=== PATIENT | male | born 1945 | race Caucasian/White ===

== ENCOUNTER 2018-10-19 10:21 | Inpatient (IN) | payer MEDICARE, BC ==
[~2018-10-19] VITALS: Ht 185.4 cm; Wt 96.0 kg
[2018-10-19] VITALS (7 sets, daily range): BP systolic 115–139; BP diastolic 54–78
[2018-10-19] MEDS ORDERED: diltiazem 5mg/ml 5ml inj. IV ONE ×2 (11:45→12:25)
[2018-10-19] MEDS ORDERED: diltiazem-NS 100mg/100ml 100 ML IV SCH (11:45)
--- NOTE | 2018-10-19 11:50 | NUR ---
triage and assessment on paper downtime chart
[2018-10-19] MEDS ORDERED: diltiazem-D5W 125mg/125ml 125 ML IV ONE (12:24)
[2018-10-19] MEDS: normal saline 1000ml 1,000 ML IV SCH (12:29)
[2018-10-19] MEDS ORDERED: potassium Cl 20 mEq SR tablet PO PRN (12:30)
[2018-10-19] MEDS ORDERED: ondansetron/PF 4mg/2ml inj IV PRN (12:30)
[2018-10-19] MEDS ORDERED: diphenhydrAMINE 25mg capsule PO PRN (12:30)
[2018-10-19] MEDS ORDERED: magnesium 4gm in 100ml NS 100 ML IV PRN (12:30)
[2018-10-19] MEDS ORDERED: mag hydrox/Alum hydrox/simeth 30ml oral suspension PO PRN (12:30)
[2018-10-19] MEDS ORDERED: magnesium hydroxide 30ml (MOM) UD suspension PO PRN (12:30)
[2018-10-19] MEDS ORDERED: magnesium Cl slow-release 64mg tablet PO PRN (12:30)
[2018-10-19] MEDS: K and/or MAG REPLACEMENT MC SCH (12:30)
[2018-10-19] MEDS ORDERED: potassium CL 10mEq/100ml bag 100 ML IV PRN ×2 (12:30)
[2018-10-19] MEDS ORDERED: magnesium 2GM in 50ml NS 50 ML IV PRN (12:30)
[2018-10-19] MEDS ORDERED: acetaminophen 325mg tablet PO PRN ×2 (12:30)
[2018-10-19] MEDS ORDERED: morphine 2 MG/ML inj. syringe IV PRN ×2 (12:30)
[2018-10-19] MEDS ORDERED: HYDROcodone/acetaminophen 10/325mg tab PO PRN (12:30)
[2018-10-19] MEDS ORDERED: HYDROcodone/acetaminophen 5mg/325mg tablet PO PRN (12:30)
[2018-10-19 13:04] LABS: ALANINE AMINOTRANSFERASE 25 U/L (12-78); ALBUMIN 3.5 G/DL (3.4-5.0); ALBUMIN/GLOBULIN RATIO 0.9 (1.1-1.5); ALKALINE PHOSPHATASE 61 IU/L (46-116); ANION GAP 14 (8-16); ASPARTATE AMINO TRANSFERASE 20 U/L (10-37); BILIRUBIN,TOTAL 0.8 MG/DL (0.1-1.0); BLOOD UREA NITROGEN 21 MG/DL (7-18); BUN/CREATININE RATIO 20.2 (5.4-32.0); CALCIUM 8.7 MG/DL (8.5-10.1); CHLORIDE 103 MMOL/L (99-107); CREATININE 1.04 MG/DL (0.60-1.10); GLUCOSE 106 MG/DL (70-104); POTASSIUM 3.9 MMOL/L (3.5-5.1); SODIUM 139 MMOL/L (135-145); TOTAL CARBON DIOXIDE 22.4 MMOL/L (24-32); TOTAL PROTEIN 7.6 G/DL (6.4-8.2); TROPONIN I < 0.04 NG/ML (0.0-0.05); eGFR 70 ML/MIN
[2018-10-19] MEDS ORDERED: ROSU10TA28 PO (13:24)
[2018-10-19] MEDS ORDERED: ASPI-611 PO (13:25)
[2018-10-19] MEDS ORDERED: ASCO500C15 PO (13:26)
[2018-10-19] MEDS ORDERED: GLUC100017 PO (13:26)
[2018-10-19 13:30] LABS: BASOPHILS % (AUTO) 0.5 % (0-1); EOSINOPHILS % (AUTO) 0.3 % (0-6); HEMATOCRIT 51.2 % (42.0-52.0); HEMOGLOBIN 17.4 g/dl (14.0-17.9); LYMPHOCYTES # (AUTO) 1.3 X10'3 (1.1-4.8); LYMPHOCYTES % (AUTO) 14.1 % (21-51); MEAN CORPUSCULAR HEMOGLOBIN 31.7 PG (27.0-31.0); MEAN CORPUSCULAR HGB CONC 33.9 g/dL (33.0-36.5); MEAN CORPUSCULAR VOLUME 93.3 FL (78-98); MEAN PLATELET VOLUME 8.9 FL (7.4-10.4); MONOCYTES # (AUTO) 1.4 X10'3 (0-0.9); MONOCYTES % (AUTO) 15.3 % (2-12); NEUTROPHILS # (AUTO) 6.5 X10'3 (1.8-7.7); NEUTROPHILS % (AUTO) 69.8 % (42-75); PLATELET COUNT 163 X10'3 (140-440); RED BLOOD COUNT 5.48 X10'6 (4.70-6.10); RED CELL DISTRIBUTION WIDTH 13.9 % (11.5-14.5); WHITE BLOOD COUNT 9.3 X10'3 (4.5-11.0)
--- NOTE | 2018-10-19 13:33 | NUR ---
cardizem drip increased to 10 mg/hr, heart rate was in 120's again
[2018-10-19 13:40] LABS: HEMOGLOBIN A1C 5.5 % (4.5-6.2)
--- NOTE | 2018-10-19 15:19 | NUR ---
Patient came up from ED and walked to bed. Patient vital signs obtained and mobile telemetry monitoring initiated. Cardizem running at 10mcg/kg/min. skin check and assessment to follow.
--- NOTE | 2018-10-19 15:19 | NUR ---
PAGER ID: [phone] MESSAGE: Alphonse [id number]. Patient came up on Cardizem gtt at 10mcg/kg/min can I put in that order? Fadumo [id number]
[2018-10-19] MEDS ORDERED: pneumococcal 23-VAL P-sac vacc 25 mcg/0.5ml vial IMVAC ONE (15:40)
[2018-10-19] MEDS: diltiazem-D5W 125mg/125ml 125 ML IV SCH ×2 (16:51→21:08)
--- NOTE | 2018-10-19 17:00 | NUR ---
PAGER ID: [phone] MESSAGE: [id number] Solomon Joseph Strong, intermittent non productive cough. Lung sounds diminished in TRAVIS/LLL. Pt. requesting for cough suppressant. Please advise. Krystina Chris [phone]
--- NOTE | 2018-10-19 18:12 | NUR ---
[place] documentation: I have reviewed and agree with interventions, assessments performed and documented by Krystina PEREZ. [place] Medication Administration: For this medication-pass time frame, medication were reviewed, dispensed, administered and documented per hospital policy by Krystina PEREZ .
--- NOTE | 2018-10-19 18:22 | NUR ---
Problems reprioritized. Patient report given, questions answered & plan of care reviewed with Roge PEREZ. Patient stable at transfer of care.
--- NOTE | 2018-10-19 18:27 | NUR ---
Patient in room PCU 3015. I have received report from ANA Thorne and had the opportunity to ask questions and assume patient care.
[2018-10-19] MEDS: heparin, porcine 5000 units/ml vial SQ SCH (20:01)
[2018-10-19] MEDS ORDERED: temazepam 15mg capsule PO PRN (21:00)
[2018-10-19] MEDS: diltiazem-NS 100mg/100ml 100 ML IV SCH (21:30)
[2018-10-20] VITALS (12 sets, daily range): BP systolic 123–155; BP diastolic 54–81
[2018-10-20 04:17] LABS: CLARITY,URINE CLEAR (Clear); COLOR,URINE YELLOW (Yellow); GLUCOSE, URINE NEGATIVE (Neg); KETONES,URINE 40 mg/dl (Neg); LEUKOCYTE ESTERASE ,URINE NEGATIVE (Neg); NITRITES, URINE NEGATIVE (Neg); OCCULT BLOOD,URINE SMALL (Neg); PH,URINE 5.5 (4.8-8.0); PROTEIN,URINE NEGATIVE (Neg); UROBILINOGEN,URINE 0.2 E.U/dL (0.2-1.0)
[2018-10-20 04:20] LABS: UA COLLECTION TYPE NON-SPECIFIED
[2018-10-20 04:22] LABS: BACTERIA,URINE NONE SEEN /HPF (Neg); MUCUS STRANDS FEW /LPF (Neg); SQUAMOUS EPITHELIAL CELL,UR NONE SEEN /LPF (FEW); WBC,URINE NONE SEEN /HPF (0-4)
[2018-10-20 04:44] LABS: BASOPHILS % (AUTO) 0.3 % (0-1); EOSINOPHILS # (AUTO) 0.1 X10'3 (0-0.9); EOSINOPHILS % (AUTO) 0.7 % (0-6); HEMATOCRIT 45.4 % (42.0-52.0); HEMOGLOBIN 15.4 g/dl (14.0-17.9); LYMPHOCYTES # (AUTO) 1.6 X10'3 (1.1-4.8); LYMPHOCYTES % (AUTO) 16.6 % (21-51); MEAN CORPUSCULAR HEMOGLOBIN 31.9 PG (27.0-31.0); MEAN CORPUSCULAR HGB CONC 33.9 g/dL (33.0-36.5); MEAN CORPUSCULAR VOLUME 94.2 FL (78-98); MEAN PLATELET VOLUME 8.4 FL (7.4-10.4); MONOCYTES # (AUTO) 1.5 X10'3 (0-0.9); MONOCYTES % (AUTO) 16.3 % (2-12); NEUTROPHILS # (AUTO) 6.3 X10'3 (1.8-7.7); NEUTROPHILS % (AUTO) 66.1 % (42-75); PLATELET COUNT 144 X10'3 (140-440); RED BLOOD COUNT 4.82 X10'6 (4.70-6.10); RED CELL DISTRIBUTION WIDTH 13.9 % (11.5-14.5); WHITE BLOOD COUNT 9.5 X10'3 (4.5-11.0)
[2018-10-20 05:00] LABS: ALANINE AMINOTRANSFERASE 29 U/L (12-78); ALBUMIN 2.8 G/DL (3.4-5.0); ALBUMIN/GLOBULIN RATIO 0.8 (1.1-1.5); ALKALINE PHOSPHATASE 50 IU/L (46-116); ANION GAP 11 (8-16); ASPARTATE AMINO TRANSFERASE 23 U/L (10-37); BILIRUBIN,TOTAL 0.6 MG/DL (0.1-1.0); BLOOD UREA NITROGEN 15 MG/DL (7-18); BUN/CREATININE RATIO 17.2 (5.4-32.0); CALCIUM 7.9 MG/DL (8.5-10.1); CHLORIDE 105 MMOL/L (99-107); CHOL/HDL RATIO 8.1 (0.00-4.99); CHOLESTEROL 138 MG/DL (0-200); CREATININE 0.87 MG/DL (0.60-1.10); GLUCOSE 113 MG/DL (70-104); HDL CHOLESTEROL 17 MG/DL (35-60); LDL CHOLESTEROL 96 MG/DL (50-100); MAGNESIUM 1.8 MG/DL (1.5-2.4); PHOSPHORUS 2.5 MG/DL (2.3-4.5); POTASSIUM 3.6 MMOL/L (3.5-5.1); SODIUM 140 MMOL/L (135-145); TOTAL CARBON DIOXIDE 23.6 MMOL/L (24-32); TOTAL PROTEIN 6.4 G/DL (6.4-8.2); TRIGLYCERIDES 123 MG/DL (20-135); eGFR 87 ML/MIN
[2018-10-20] MEDS: normal saline 1000ml 1,000 ML IV SCH ×3 (05:03→21:29)
[2018-10-20 05:39] LABS: PLATELET ESTIMATE NORMAL; TOTAL CELLS COUNTED 100
--- NOTE | 2018-10-20 06:00 | NUR ---
Patient in room PCU 3015. I have received report from ANA Her and had the opportunity to ask questions and assume patient care.
--- NOTE | 2018-10-20 06:20 | NUR ---
Problems reprioritized. Patient report given, questions answered & plan of care reviewed with Helen RN, Reema RN.
[2018-10-20] MEDS: diltiazem-NS 100mg/100ml 100 ML IV SCH (06:39)
--- NOTE | 2018-10-20 06:42 | NUR ---
Patient in room PCU 3015B. I have received report from Taina PEREZ and had the opportunity to ask questions and assume patient care.
[2018-10-20] MEDS: K and/or MAG REPLACEMENT MC SCH (07:04)
[2018-10-20] MEDS: atorvastatin 20mg tablet PO SCH (07:23)
[2018-10-20] MEDS: ascorbic acid 500mg tablet PO SCH (07:24)
[2018-10-20] MEDS: heparin, porcine 5000 units/ml vial SQ SCH ×2 (07:26→21:27)
[2018-10-20] MEDS ORDERED: aspirin 325mg tablet, delayed-release (Ecotrin) PO SCH (08:00)
[2018-10-20] MEDS ORDERED: GLUCOSAMINE SULFATE PO SCH (08:00)
--- NOTE | 2018-10-20 09:31 | NUR ---
PAGER ID: [phone] MESSAGE: Helen [phone]. RE Solomon Joseph [id number]. Can I place order for PT Eval and Treat? Thank you
[2018-10-20] MEDS ORDERED: pneumococcal 23-VAL P-sac vacc 25 mcg/0.5ml vial IMVAC ONE (10:00)
--- NOTE | 2018-10-20 10:30 | NUR ---
Orders from Dr Amanda to start Cardizem CD 120 mg PO BID, with first dose now, then to D/C Cardizem drip 2-3 hrs later. is aware that Cardizem CD is normally daily, but to let pharmacy know that he wants it BID.
[2018-10-20] MEDS: diltiazem CD 120mg capsule (once-daily) PO SCH ×2 (10:55→21:24)
--- NOTE | 2018-10-20 18:16 | NUR ---
Problems reprioritized. Patient report given, questions answered & plan of care reviewed with ANA Her.
--- NOTE | 2018-10-20 18:33 | NUR ---
Patient in room PCU 3015. I have received report from ANA Cervantes and had the opportunity to ask questions and assume patient care.
[2018-10-21 03:00] VITALS: BP 140/67
[2018-10-21 04:58] LABS: BASOPHILS % (AUTO) 0.3 % (0-1); EOSINOPHILS % (AUTO) 0.2 % (0-6); HEMATOCRIT 44.8 % (42.0-52.0); HEMOGLOBIN 14.8 g/dl (14.0-17.9); LYMPHOCYTES % (AUTO) 10.6 % (21-51); MEAN CORPUSCULAR HEMOGLOBIN 30.9 PG (27.0-31.0); MEAN CORPUSCULAR HGB CONC 33.1 g/dL (33.0-36.5); MEAN CORPUSCULAR VOLUME 93.3 FL (78-98); MEAN PLATELET VOLUME 8.1 FL (7.4-10.4); MONOCYTES # (AUTO) 1.2 X10'3 (0-0.9); MONOCYTES % (AUTO) 12.5 % (2-12); NEUTROPHILS # (AUTO) 7.5 X10'3 (1.8-7.7); NEUTROPHILS % (AUTO) 76.4 % (42-75); PLATELET COUNT 156 X10'3 (140-440); RED CELL DISTRIBUTION WIDTH 13.9 % (11.5-14.5); WHITE BLOOD COUNT 9.8 X10'3 (4.5-11.0)
--- NOTE | 2018-10-21 05:32 | NUR ---
Patient taken off mobile 67 and placed on tele 52
[2018-10-21 05:35] LABS: ALANINE AMINOTRANSFERASE 35 U/L (12-78); ALBUMIN 2.6 G/DL (3.4-5.0); ALBUMIN/GLOBULIN RATIO 0.7 (1.1-1.5); ALKALINE PHOSPHATASE 48 IU/L (46-116); ANION GAP 11 (8-16); ASPARTATE AMINO TRANSFERASE 36 U/L (10-37); BILIRUBIN,TOTAL 0.8 MG/DL (0.1-1.0); BLOOD UREA NITROGEN 11 MG/DL (7-18); BUN/CREATININE RATIO 14.1 (5.4-32.0); CALCIUM 7.8 MG/DL (8.5-10.1); CHLORIDE 106 MMOL/L (99-107); CREATININE 0.78 MG/DL (0.60-1.10); GLUCOSE 112 MG/DL (70-104); MAGNESIUM 1.8 MG/DL (1.5-2.4); POTASSIUM 3.4 MMOL/L (3.5-5.1); SODIUM 141 MMOL/L (135-145); TOTAL CARBON DIOXIDE 23.9 MMOL/L (24-32); TOTAL PROTEIN 6.2 G/DL (6.4-8.2); eGFR > 90 ML/MIN
[2018-10-21 06:00] VITALS: BP 136/76
--- NOTE | 2018-10-21 06:00 | NUR ---
Patient in room PCU 3015. I have received report from ANA Her and had the opportunity to ask questions and assume patient care.
--- NOTE | 2018-10-21 06:17 | NUR ---
Problems reprioritized. Patient report given, questions answered & plan of care reviewed with ANA Castro.
--- NOTE | 2018-10-21 06:46 | NUR ---
Patient in room PCU 3015. I have received report from Taina PEREZ and had the opportunity to ask questions and assume patient care. Patient awake in bed. No complaints at this time. All immediate needs met.
[2018-10-21] MEDS: atorvastatin 20mg tablet PO SCH (07:23)
[2018-10-21] MEDS: ascorbic acid 500mg tablet PO SCH (07:23)
[2018-10-21] MEDS: diltiazem CD 120mg capsule (once-daily) PO SCH (07:23)
[2018-10-21] MEDS: normal saline 1000ml 1,000 ML IV SCH (07:24)
[2018-10-21] MEDS: potassium Cl 20 mEq SR tablet PO PRN ×3 (07:24→15:24)
[2018-10-21] MEDS: K and/or MAG REPLACEMENT MC SCH (07:31)
[2018-10-21 08:00] VITALS: BP_SYST 123; BP_SYST 130; BP_SYST 144; BP_DIAS 70; BP_DIAS 73; BP_DIAS 78
[2018-10-21] MEDS ORDERED: aspirin 325mg tablet, delayed-release (Ecotrin) PO SCH (08:00)
[2018-10-21] MEDS: heparin, porcine 5000 units/ml vial SQ SCH (08:34)
[2018-10-21] MEDS ORDERED: pneumococcal 23-VAL P-sac vacc 25 mcg/0.5ml vial IMVAC ONE (10:00)
[2018-10-21 11:00] VITALS: BP 144/73
--- NOTE | 2018-10-21 12:10 | NUR ---
O2 Sat at rest on room air:_87__% If below 89%: Recovery O2 Sat at rest on _2__LPM:_91__%:___% via Nasal cannula (mask/nasal cannula, etc..) No further documentation is necessary. If O2 Sat did not drop below 89% on room air,ambulate patient on room air. O2 Sat while ambulating on room air:___% Recovery O2 Sat while ambulating on ___LPM:___% No further documentation is necessary. If patient does not drop below 89% while ambulating, he/she does not qualify for home O2.
--- NOTE | 2018-10-21 12:32 | NUR ---
Page Dr. Ballard PAGER ID: [phone] MESSAGE: Reema x [phone] RE: Narinder Joseph [phone]. FYI discussed discharge with patient and he would like to go home today. Home O2 being arranged by case management. Thank you.
[2018-10-21] MEDS ORDERED: ASPI-41 PO (12:47)
[2018-10-21] MEDS ORDERED: CARCD120C PO (12:47)
--- NOTE | 2018-10-21 13:59 | NUR ---
Page Dr. Ballard. PAGER ID: [phone] MESSAGE: Reema x [phone] RE: Narinder Joseph [id number]. Patient's sister in law has concerns about patient living alone with no help. Is it possible to order home health services short term? Thank you.
[2018-10-21 15:00] VITALS: BP 144/108
--- NOTE | 2018-10-21 16:40 | NUR ---
Patient stable for discharge per MD orders. All discharge instructions reviewed with patient and all questions answered. New prescriptions & home O2 delivered by Blake's bedside. PIV discontinued, cannula intact. electric appliance installer discontinued. All patient belonging as well as medications and home O2 sent with patient in private vehicle to home. Patient educated on all new medications as well as home O2 therapy and how to wear nasal cannula. Patient wheeled to lobby by PCT accompanied by family and primary RN. Patient instructed to return to ED if short of breath or symptoms worsen.
--- NOTE | 2018-10-21 18:50 | NUR ---
[place] documentation: I have reviewed and agree with all interventions, assessments performed and documented by Reema PEREZ. [place] Medication Administration: For this medication-pass time frame, all medication were reviewed, dispensed, administered and documented per hospital policy by Reema PEREZ.
== END 2018-10-21 16:10 | disposition home or self-care (01) | DRG 310 ==
LOC: ER 11:55 → PCU 3S 14:55 → CMPBEDREQ 19:54
PROVIDERS: ADMIT Family Medicine; ATTEND Hospitalist
PROC: 3E0234Z Introduction of Serum, Toxoid and Vaccine into Muscle, Percutaneous Approach (ICD-10-PCS; principal; 2018-10-21)
DX: I48.91 Unspecified atrial fibrillation (principal); E78.5 Hyperlipidemia, unspecified; F17.200 Nicotine dependence, unspecified, uncomplicated; E78.00 Pure hypercholesterolemia, unspecified; R61 Generalized hyperhidrosis; Z79.82 Long term (current) use of aspirin; Z23 Encounter for immunization; Z79.899 Other long term (current) drug therapy
CPT/HCPCS: 36415; 71045; 80053; 80061; 81001; 83036; 83735; 83880; 84100; 84443; 84484; 85025; 87081; 93005; 93308; 96365; 96366; 97116; 97161; 97530; 99285; G0378; J1644; J3490; J7030